=== PATIENT | female | born 1980 | race African-American/Black ===

== ENCOUNTER 2016-06-26 12:17 | Inpatient (IN) | payer MEDICAID ==
[~2016-06-26] VITALS: Ht 160 cm; Wt 78.0 kg
[~2016-06-26 12:17] MED LIST: PRENCAP6 PO
--- NOTE | 2016-06-28 09:03 | HHI.HP ---
HPI Chief Complaint repeat cd Date Seen: Jun 28, 2016 Travel History International Travel<30 Days: No Contact w/Intl Traveler<30Days: No Known Affected Area: No History of Present Illness HPI 35 yo with iup at 40 w 5d here for repeat cd. She desired tolac but cervix unfavorable, has elected for repeat cd. + FM, irreg ctx. neg lof or vb. Para: 1 : 3 Miscarriage: 1 History Past Medical History Medical History: Denies Significant Hx Obstetric History Obstetric History h/o gcm, AMA, ASCUS neg hrhpv Past Surgical History Narrative Surgical CD x 1 for cpd Family History Family History: Negative Social History Alcohol Use: No Tobacco Use: No Substance Abuse: No Allergies-Medications (Allergen,Severity, Reaction): Coded Allergies: No Known Allergies (Unverified , 06/22/16) Home Meds Reported Medications Mv & Min W/Fe Fumarat ( 1) Cap1 Cap PO DAILY 01/28/16 Discontinued Scripts Cephalexin (Keflex)500 Mg [id number] Mg PO Q6 #28 CAP Prov:Haresh Samuel MD 01/28/16 Review of Systems General / Constitutional: No: Fever, Weight Gain, Chills, Other Eyes: No: Diploplia, Blurred Vision, Visual changes, Pain, Photophobia HENT: No: Headaches, Vertigo, Lightheadedness Cardiovascular: No: Irregular Rhythm, Chest Pain or Discomfort, Palpitations, Tachycardia, Syncope, Varicosities, Edema, Cyanosis Respiratory: No: Cough, Short of Breath, Other Gastrointestinal: Other (hemorrhoids), No: Nausea, Vomiting, Diarrhea Genitourinary: No: Decreased Urinary Output, Oliguria Musculoskeletal: No: Limited ROM, Weakness, Cramping, Edema, Pain Skin: No Rash, No Itching, No Dryness, No Lumps, No Change in Pigmentation, No Change in Nails, No Alopecia, No Lesions Neurologic: No: Weakness, Dizziness, Syncope, Focal Abnormalities, Coordination Problem, Headache, Slurred Speech, Seizures Psychiatric: No: Depression, Suicidal Ideations, Homicidal Ideation Endocrine: No: Heat Intolerance, Cold Intolerance, Polydipsia, Polyuria, Other Physical Exam Narrative GENERAL: Well-nourished, well-developed patient. SKIN: Warm and dry. HEAD: Normocephalic and atraumatic. EYES: No scleral icterus. No injection or drainage. ENT: No nasal drainage noted. Mucous membranes pink. Airway patent. NECK: Supple, trachea midline. No JVD. CARDIOVASCULAR: Regular rate and rhythm without murmurs, gallops, or rubs. RESPIRATORY: Breath sounds equal bilaterally. No accessory muscle use. ABDOMEN/GI: Abdomen soft, non-tender, bowel sounds present, no rebound, no guarding Fundal Height: [-] GENITOURINARY: External Genitalia: intact and normal in appearance Presentation: ceph Membranes: [intact Uterine Contractions: irreg FHT's: Category:I EXTREMITIES: No cyanosis or edema. BACK: Nontender without obvious deformity. No CVA tenderness. NEUROLOGICAL: Awake and alert. Motor and sensory grossly within normal limits. Five out of 5 muscle strength in all muscle groups. Normal speech. Data Data Vital Signs Reviewed: Yes Orders Admit To Inpatient (06/28/16 ) Vital Signs (Adult) .ON ADMISSION (06/28/16 08:53) Activity Oob Ad Kaitlyn (06/28/16 08:53) ^ Heart (06/28/16 08:53) Urinary Catheter Management CANDELARIA.Q8H (06/28/16 08:53) ^ Preps (06/28/16 08:53) Scd / Josue / Foot Pump CANDELARIA.QSHIFT (06/28/16 08:53) ^ Ultrasound For Locatio (06/28/16 08:53) Diet Npo (06/28/16 Breakfast) Type And Screen (06/28/16 08:53) Complete Blood Count With Diff (06/28/16 08:53) Urinalysis - C+S If Indicated (06/28/16 08:53) Specimen To Be Collected PRN (06/28/16 08:53) Assessment/Plan Problem List: (1) History of delivery (2) 40 weeks gestation of (3) AMA (advanced maternal age) multigravida 35+ Assessment and Plan 35 yo with iup at 40w5d by first trimester u/s. here for repeat cd 1) RCD- not favorable pelvis and poor marino score. 2) AMA- neg cfdna adn msafp 3) h/o gdm, normal 1 hr 4) ascus pap with neg hpv Crockett,Joann MD Jun 28, 2016 09:03 Joann Crockett MD Jun 28, 2016 09:03
[2016-06-28 09:04] LABS: AUTOMATED NEUTROPHIL # 7.1 TH/MM3 (1.8-7.7); BASOPHIL % 0.5 % (0.0-2.0); EOSINOPHIL # 0.1 TH/MM3 (0-0.4); EOSINOPHIL % 0.8 % (0.0-4.0); HEMATOCRIT 39.5 % (35.0-46.0); HEMO FLAGS DIFF FINAL; LYMPHOCYTE # 1.2 TH/MM3 (1.0-4.8); MEAN CELL VOLUME 94.2 FL (80.0-100.0); MEAN CORPUSCULAR HEMOGLOBIN 31.8 PG (27.0-34.0); MEAN CORPUSCULAR HGB CONC 33.7 % (32.0-36.0); MONO % 9.9 % (0.0-8.0); NEUT % 75.8 % (16.0-70.0); PLATELET COUNT 210 TH/MM3 (150-450); RED BLOOD COUNT 4.19 MIL/MM3 (4.00-5.30); RED CELL DISTRIBUTION WIDTH 14.3 % (11.6-17.2); WHITE BLOOD COUNT 9.4 TH/MM3 (4.0-11.0)
[2016-06-28 09:05] LABS: BACTERIA, URINE OCC /hpf; BLOOD, URINE NEG (NEG); COMMENT (UR) CULT NOT INDICATED; CULTURE IF INDICATED CULT NOT INDICATED; GLUCOSE,URINE NEG (NEG); KETONE, URINE NEG (NEG); MUCUS URINE FEW /lpf (OCC); NITRITE,URINE NEG (NEG); PH, URINE 6.5 (5.0-8.5); SQUAMOUS EPITHELIAL CELL URINE 3 /hpf (0-5); URINE COLOR YELLOW (YELLW/STRAW)
[2016-06-28] MEDS ORDERED: OXYTOCIN 10 UNIT/ML AMP ONE (09:39)
[2016-06-28] MEDS ORDERED: ceFAZolin INJ 1,000 MG VIAL ONE (09:39)
[2016-06-28] MEDS ORDERED: ceFAZolin 2 GM PREMIX 50 ML IV SCH (10:00)
[2016-06-28] MEDS ORDERED: CITRIC ACID-SODIUM CITRATE LIQ 30 ML UDC PO SCH (10:00)
[2016-06-28] MEDS ORDERED: LACTATED RINGER'S 1000 ML IV ONE (10:00)
[2016-06-28] MEDS: LACTATED RINGER'S 1000 ML IV SCH (10:00)
[2016-06-28 10:50] VITALS: BP 123/62; PULSE 68; RESP 16; TEMP 97.7; O2SAT 98
[2016-06-28] MEDS ORDERED: MORPHINE SULFATE PF 5 MG/10 ML VIAL ONE (10:50)
--- NOTE | 2016-06-28 10:52 | PD.OB.DELI ---
Procedure Note Section Procedure Pre Op Diagnosis: (1) 40 weeks gestation of (2) AMA (advanced maternal age) multigravida 35+ (3) History of delivery Post Op Diagnosis: (1) 40 weeks gestation of (2) AMA (advanced maternal age) multigravida 35+ (3) History of delivery Performed by Joann Crockett Procedure: Repeat Low Transverse Sec Indication for delivery: Desired elective repeat Informed consent obtained: For anesthesia, For procedure Confirmed correct: Patient, Procedure, Site, Time-out taken Anesthesia: Spinal Medication prior to procedure: As documented in eMAR Monitoring during procedure: Blood pressure monitoring, Pulse oximetry Urinary catheter: Inserted using sterile technique, To dependent drainage, ml urine output (50) Sterile preparation: With 2% chlorexidine (Hibiclens) Position: Supine with wedge to right side, Supine with safety belt applied Operative Features Skin Incision: Pfannenstiel Uterine Incision: Low transverse w/knife / blunt ext Membranes Ruptured: Artificially, Appearance of fluid (cl) Presentation: Occiput posterior Delivery of : Uneventful Infant: Male One Minute : 8 Five Minute : 8 Weight: pending Status of : Viable, Cord blood Placenta delivered: Intact Medications: Antibiotics, Oxytocin Estimated blood loss: 500ml Procedure tolerated: Well Maternal Condition: Stable Baby Complications: Hypoxia (on cpap, taken to nicu for low O2 sats) Condition: Fair Procedure in detail see dictation Joann Crockett MD Jun 28, 2016 10:52
--- NOTE | 2016-06-28 10:53 | HHI.DCPOC ---
Discharge Care Plan Diagnosis: (1) History of delivery Your Health Problems Are: Incisions/drains delivery Report Symptoms to Your Doctor -Temperate above 100.5 degrees -Redness, of incision or excessive or foul smelling drainage -Unusual pain or calf pain -Increased vaginal bleeding -Painful or difficulty urinating -Feelings of extreme sadness or anxiety after 2 weeks Goals to Promote Your Health * To prevent worsening of your condition and complications * To maintain your health at the optimal level Directions to Meet Your Goals Take your medications as prescribed Follow your dietary instruction Follow activity as directed Ensure plenty of rest for recovery Drink fluids for hydration Keep your appointments as scheduled Take your immunizations and boosters as scheduled If your symptoms worsen call your PCP, if no PCP go to Urgent Care Center or Emergency Room Smoking is Dangerous to Your Health. Avoid second hand smoke Call the 24-hour crisis hotline for domestic abuse at Joann Crockett MD Jun 28, 2016 10:52
[2016-06-28] MEDS ORDERED: ONDANSETRON HCL 4 MG/2 ML VIAL IV PUSH PRN (11:00)
[2016-06-28] MEDS ORDERED: oxyCODONE/ACETAMINOPHEN 5 MG/325 MG TAB PO PRN (11:00)
[2016-06-28] MEDS ORDERED: SODIUM CHLORIDE 0.9% FLUSH 5 ML FLUSH IV PRN (11:00)
[2016-06-28] MEDS ORDERED: OXYTOCIN 30 UNITS-500ML PREMIX 500 ML IV ONE (11:00)
[2016-06-28] MEDS ORDERED: ACETAMINOPHEN 1000 MG/100 ML VIAL IV ONE ×2 (11:00→11:15)
[2016-06-28] MEDS ORDERED: SIMETHICONE 80 MG CHEWABLE TAB PO PRN (11:00)
[2016-06-28 11:05] VITALS: BP 130/73; PULSE 63; RESP 16; O2SAT 96
[2016-06-28] MEDS ORDERED: METOCLOPRAMIDE HCL 10 MG/2 ML VIAL IV ONE (11:12)
[2016-06-28] MEDS ORDERED: LACTATED RINGER'S 1000 ML INJ 1,000 ML IV ONE (11:13)
[2016-06-28] MEDS ORDERED: OXYTOCIN 30 UNITS-500ML PREMIX 500 ML ONE (11:15)
--- NOTE | 2016-06-28 11:19 | MP ---
cc: JOANN CROCKETT MD DATE OF SURGERY 06/28/2016 PREOPERATIVE DIAGNOSES 1. Intrauterine at 40 weeks and 5 days. 2. History of delivery. 3. Advanced maternal age. POSTOPERATIVE DIAGNOSES 1. Intrauterine at 40 weeks and 5 days. 2. History of delivery. 3. Advanced maternal age. INDICATIONS The patient is a 35-year-old G3, P 1-0-1-1 with an intrauterine at 40 weeks and 5 days. She has a history of a prior for cephalopelvic disproportion and she had initially desired a trial of labor but given that she had a poor Webber score and she was over 40 weeks, she elected to have a repeat delivery. The risks, benefits and alternatives were discussed. Consent signed on chart. All questions answered. SURGEON Joann Crockett MD PROCEDURE PERFORMED Repeat low transverse delivery. ESTIMATED BLOOD LOSS 500 mL. IV FLUIDS 2 liters. URINE OUTPUT 15 mL. ANESTHESIA Spinal. COMPLICATIONS None. COUNTS Sponge, lap, needle and instrument correct x 3. INTRAOPERATIVE FINDINGS Viable male infant, Apgars of 8 and 8. Weight pending. Baby taken to NICU for desaturation, placed on C-PAP. Clear amniotic fluid. Maternal Anatomy: Approximately 4-cm fibroid anterior fundal portion of the uterus. Normal tubes and ovaries. Minimal scarring of the subcutaneous tissue and fascia. Minimal filmy adhesions from the bladder to the lower uterine segment. PROCEDURE IN DETAIL After reviewing informed consent, the patient was taken to the operating room where spinal anesthesia was administered without complication. A Sy was placed under sterile conditions. The abdomen was prepped and draped in normal sterile fashion. Antibiotics were given prior to incision. Anesthesia was confirmed to be adequate. A Pfannenstiel skin incision was made at the previous incision site with the scalpel, carried down to underlying fascia with the Bovie. The fascia was incised in the midline. This incision was extended bilaterally with Sexton scissors. The superior aspect of the fascial incision was grasped with Damian clamps, elevated and the rectus muscles dissected off bluntly. The same was repeated inferiorly. The rectus muscles were in the midline bluntly. The peritoneum was entered bluntly. This incision was extended bluntly. The bladder blade was inserted. Very minimal filmy adhesions of the bladder to the lower uterine segment were noted. These were taken down with Metzenbaum scissors. A bladder flap was created with Metzenbaum scissors. The bladder blade was replaced. A low transverse uterine incision was made with the scalpel and dissection was extended bluntly. The amnion was ruptured and noted to be clear. The head was flexed. OP presentation was noted and fundal pressure was applied and delivery of the head followed by the thorax and the rest of the body readily followed. The baby was bulb suctioned. The cord was doubly clamped and cut. The baby was handed off to the waiting pediatricians. IV infusion of Pitocin was started immediately after delivery of the . The placenta was delivered with gentle traction and uterine massage. The uterus was then exteriorized, cleared of all clots and debris with a moistened laparotomy sponge. The uterus was repaired in two layers with #1 chromic, first with a running locked stitch, followed by an imbricating layer. The posterior cul-de-sac was irrigated. The uterus was replaced. Good hemostasis was noted. The anterior cul-de-sac was irrigated. The peritoneum was closed in running fashion with 2-0 chromic. The fascia was closed with #1 Vicryl in a running fashion. The subcutaneous tissue was irrigated and hemostasis was obtained with the Bovie. The skin was closed with 3-0 Monocryl in a subcuticular fashion. Steri-Strips were applied and sterile dressing. The patient tolerated the procedure well. Joann Crockett MD PE/ZENIA /10:48 AM /11:05 AM GWYN
[2016-06-28 11:20] VITALS: BP 119/69; PULSE 61; RESP 17; O2SAT 96
[2016-06-28] MEDS ORDERED: EPIDURAL-DIPHENHYDRAMINE HCL 50 MG CAP PO PRN (12:30)
[2016-06-28] MEDS ORDERED: EPIDURAL-DO NOT ADMINISTER ANTICOAGULANTS XX PRN (12:30)
[2016-06-28] MEDS ORDERED: EPIDURAL-NALOXONE HCL 0.4 MG/ML AMP IV PRN (12:30)
[2016-06-28] MEDS ORDERED: EPIDURAL-DIPHENHYDRAMINE HCL 50 MG/ML VIAL IV PUSH PRN (12:30)
[2016-06-28] MEDS ORDERED: EPIDURAL-NO SYSTEMIC NARCOTICS XX PRN (12:30)
[2016-06-28 13:03] VITALS: BP 105/73; PULSE 67; RESP 20; TEMP 97.5
[2016-06-28] MEDS ORDERED: LACTATED RINGER'S 1000 ML INJ 1,000 ML IV SCH (15:47)
[2016-06-28 17:22] VITALS: BP 112/77; PULSE 83; RESP 16; TEMP 99
[2016-06-28] MEDS: IBUPROFEN 600 MG TAB PO PRN (18:34)
[2016-06-28] MEDS: oxyCODONE/ACETAMINOPHEN 5 MG/325 MG TAB PO PRN (18:35)
[2016-06-28 19:15] VITALS: BP 114/80; PULSE 78; RESP 14; TEMP 98.9
[2016-06-28] MEDS ORDERED: ACETAMINOPHEN 1000 MG/100 ML VIAL IV SCH (20:00)
[2016-06-28] MEDS ORDERED: SODIUM CHLORIDE 0.9% FLUSH 5 ML FLUSH IV SCH (21:00)
[2016-06-28] MEDS ORDERED: OXYTOCIN 30 UNITS-500ML PREMIX 500 ML IV PRN (21:00)
[2016-06-29] MEDS: oxyCODONE/ACETAMINOPHEN 5 MG/325 MG TAB PO PRN ×3 (00:01→18:58)
[2016-06-29] MEDS: IBUPROFEN 600 MG TAB PO PRN ×4 (00:01→18:58)
[2016-06-29 07:18] LABS: AUTOMATED NEUTROPHIL # 7.6 TH/MM3 (1.8-7.7); BASOPHIL % 0.3 % (0.0-2.0); EOSINOPHIL # 0.1 TH/MM3 (0-0.4); EOSINOPHIL % 0.8 % (0.0-4.0); HEMO FLAGS DIFF FINAL; LYMPH % 10.6 % (9.0-44.0); MEAN CELL VOLUME 93.2 FL (80.0-100.0); MEAN CORPUSCULAR HEMOGLOBIN 31.3 PG (27.0-34.0); MEAN CORPUSCULAR HGB CONC 33.6 % (32.0-36.0); MONO % 8.9 % (0.0-8.0); NEUT % 79.4 % (16.0-70.0); PLATELET COUNT 174 TH/MM3 (150-450); RED BLOOD COUNT 3.75 MIL/MM3 (4.00-5.30); RED CELL DISTRIBUTION WIDTH 14.2 % (11.6-17.2); WHITE BLOOD COUNT 9.5 TH/MM3 (4.0-11.0)
[2016-06-29 08:00] VITALS: BP 100/68; PULSE 79; RESP 17; TEMP 97.9
--- NOTE | 2016-06-29 08:20 | HHI.OB ---
Subjective Post Operative Day: 1 Remarks s/p repeat CD Objective Vitals/I&O Vital Signs Date Time Temp Pulse Resp B/P Pulse Ox O2 Delivery O2 Flow Rate FiO2 06/28/16 19:15 98.9 78 14 114/80 06/28/16 17:22 99.0 83 16 112/77 06/28/16 13:03 97.5 67 20 105/73 06/28/16 11:20 61 17 119/69 96 06/28/16 11:05 63 16 130/73 96 06/28/16 10:50 68 123/62 06/28/16 10:50 97.7 16 98 Result Diagram: 06/29/16 0650 Objective Remarks GENERAL: Well-nourished, well-developed patient. CARDIOVASCULAR: Regular rate and rhythm without murmurs, gallops, or rubs. RESPIRATORY: Breath sounds equal bilaterally. No accessory muscle use. ABDOMEN/GI: Abdomen soft, non-tender, bowel sounds present. Incision: Clean, dry and intact. steri-strips in place Fundus: Firm, non-tender at umbilicus. GENITOURINARY: Light to moderate bleeding. EXTREMITIES: No cyanosis or edema, non-tender, without signs of DVT. Medications and IVs Current Medications Medications (Trade) Dose Ordered Sig/Suman Route Start Time Stop Time Status Last Admin Lactated Ringer's 1,000 ml @ 150 mls/hr Q6H40M IV 06/28/16 10:00 (Lr 1000 ml Inj) 1,000 ml @ 100 mls/hr Q10H IV 06/28/16 15:47 06/29/16 11:46 (NS Flush) 2 ml BID IV 06/28/16 21:00 (NS Flush) 2 ml UNSCH PRN IV 06/28/16 11:00 (Mylicon Chew) 80 mg QID PRN PO 06/28/16 11:00 (Motrin) 600 mg Q6H PRN PO 06/28/16 11:00 06/29/16 06:11 (Percocet 5-325 Mg) 1 tab Q4H PRN PO 06/28/16 11:00 06/29/16 06:11 (Percocet 5-325 Mg) 2 tab Q4H PRN PO 06/28/16 11:00 (Kandis-Colace) 2 tab Q12H PRN PO 06/28/16 11:00 (M-M-R Ii Inj) 0.5 ml ONCE ONCE SQ 06/29/16 16:00 06/29/16 16:01 (Boostrix Inj) 0.5 ml ONCE ONCE IM 06/29/16 16:00 06/29/16 16:01 (Zofran Inj) 4 mg Q6H PRN IV PUSH 06/28/16 11:00 Miscellaneous Information NO SYSTEMIC NARCOTICS TO BE GIVEN FO... UNSCH PRN XX 06/28/16 12:30 06/29/16 12:29 (Narcan Inj) 0.4 mg UNSCH PRN IV 06/28/16 12:30 06/29/16 12:29 (Benadryl Inj) 25 mg Q6H PRN IV PUSH 06/28/16 12:30 06/29/16 12:29 (Benadryl) 50 mg Q6H PRN PO 06/28/16 12:30 06/29/16 12:29 Miscellaneous Information ALL NURSING DEPARTMENTS UNSCH PRN XX 06/28/16 12:30 06/29/16 12:29 Assessment/Plan Problem List: (1) History of delivery (2) 40 weeks gestation of (3) AMA (advanced maternal age) multigravida 35+ Assessment and Plan 35 yo s/p repeat CD at 40w5d routine supportive care, support infant in NICU for problems maintaining O2 sats; parents paid for circ; if nursery status will plan circ prior to d/c Discharge Planning routine Nayely Le MD Jun 29, 2016 08:20
[2016-06-29 12:00] VITALS: BP 120/66; PULSE 89; RESP 18; TEMP 97.7
[2016-06-29] MEDS: DOCUSATE SODIUM 50 MG/SENNA 8.6 MG TAB PO PRN (12:42)
[2016-06-29] MEDS ORDERED: DIPHTH/TETANUS/ACEL PERTUSSIS (BOOSTER) 0.5 ML VIAL/PFS IM ONE (16:00)
[2016-06-29] MEDS ORDERED: MEASLES, MUMPS, RUBELLA VACCINE 0.5 ML VIAL SQ ONE (16:00)
[2016-06-29] MEDS: LACTATED RINGER'S 1000 ML IV SCH (19:20)
[2016-06-30] MEDS: LACTATED RINGER'S 1000 ML IV SCH (02:00)
[2016-06-30] MEDS: oxyCODONE/ACETAMINOPHEN 5 MG/325 MG TAB PO PRN ×4 (02:41→19:57)
[2016-06-30] MEDS: IBUPROFEN 600 MG TAB PO PRN ×4 (02:41→19:57)
[2016-06-30] MEDS: DOCUSATE SODIUM 50 MG/SENNA 8.6 MG TAB PO PRN (02:42)
[2016-06-30 07:00] VITALS: BP 128/84; PULSE 73; RESP 16; TEMP 98.2
[2016-06-30] MEDS ORDERED: OXYC1TAB63 PO (10:17)
[2016-06-30] MEDS ORDERED: IBUP-232 PO (10:17)
--- NOTE | 2016-06-30 10:17 | HHI.OB ---
Subjective Post Operative Day: 2 Remarks s/p repeat CD Objective Vitals/I&O Vital Signs Date Time Temp Pulse Resp B/P Pulse Ox O2 Delivery O2 Flow Rate FiO2 06/30/16 07:00 98.2 73 16 128/84 06/29/16 12:00 89 120/66 06/29/16 12:00 97.7 18 Result Diagram: 06/29/16 0650 Objective Remarks GENERAL: Well-nourished, well-developed patient. CARDIOVASCULAR: Regular rate and rhythm without murmurs, gallops, or rubs. RESPIRATORY: Breath sounds equal bilaterally. No accessory muscle use. ABDOMEN/GI: Abdomen soft, non-tender, bowel sounds present. Incision: Clean, dry and intact. steri-strips in place Fundus: Firm, non-tender at umbilicus. GENITOURINARY: Light to moderate bleeding. EXTREMITIES: No cyanosis or edema, non-tender, without signs of DVT. Medications and IVs Current Medications Medications (Trade) Dose Ordered Sig/Suman Route Start Time Stop Time Status Last Admin (Lr 1000 ml Inj) 1,000 ml @ 150 mls/hr Q6H40M IV 06/28/16 10:00 (NS Flush) 2 ml BID IV 06/28/16 21:00 (NS Flush) 2 ml UNSCH PRN IV 06/28/16 11:00 (Mylicon Chew) 80 mg QID PRN PO 06/28/16 11:00 06/29/16 16:11 (Motrin) 600 mg Q6H PRN PO 06/28/16 11:00 06/30/16 08:00 (Percocet 5-325 Mg) 1 tab Q4H PRN PO 06/28/16 11:00 06/30/16 08:00 (Percocet 5-325 Mg) 2 tab Q4H PRN PO 06/28/16 11:00 06/29/16 12:43 (Kandis-Colace) 2 tab Q12H PRN PO 06/28/16 11:00 06/30/16 02:42 (Zofran Inj) 4 mg Q6H PRN IV PUSH 06/28/16 11:00 Assessment/Plan Problem List: (1) History of delivery (2) 40 weeks gestation of (3) AMA (advanced maternal age) multigravida 35+ Assessment and Plan 35 yo s/p repeat CD at 40w5d routine supportive care, support in NICU for problems maintaining O2 sats; parents paid for circ; if infant becomes nursery status will plan circ prior to d/c tomorrow Discharge Planning routine Nayely Le MD Jun 30, 2016 10:17
[2016-06-30] MEDS ORDERED: SENN1TAB PO (10:18)
[2016-06-30] MEDS ORDERED: PRAMOXINE 1% RECTAL FOAM 15 GM CAN RECTAL PRN (11:00)
[2016-07-01] MEDS: oxyCODONE/ACETAMINOPHEN 5 MG/325 MG TAB PO PRN ×2 (01:54→09:34)
[2016-07-01] MEDS: IBUPROFEN 600 MG TAB PO PRN ×2 (01:54→09:35)
--- NOTE | 2016-07-01 08:31 | HHI.OB ---
Subjective Post Operative Day: 3 Remarks doing well Objective Result Diagram: 06/29/16 0650 Objective Remarks GENERAL: Well-nourished, well-developed patient. CARDIOVASCULAR: Regular rate and rhythm without murmurs, gallops, or rubs. RESPIRATORY: Breath sounds equal bilaterally. No accessory muscle use. ABDOMEN/GI: Abdomen soft, non-tender, bowel sounds present. Incision: Clean, dry and intact. steri-strips in place Fundus: Firm, non-tender at umbilicus. GENITOURINARY: Light to moderate bleeding. EXTREMITIES: No cyanosis or edema, non-tender, without signs of DVT. Medications and IVs Current Medications Medications (Trade) Dose Ordered Sig/Suman Route Start Time Stop Time Status Last Admin (Lr 1000 ml Inj) 1,000 ml @ 150 mls/hr Q6H40M IV 06/28/16 10:00 (NS Flush) 2 ml BID IV 06/28/16 21:00 (NS Flush) 2 ml UNSCH PRN IV 06/28/16 11:00 (Mylicon Chew) 80 mg QID PRN PO 06/28/16 11:00 06/29/16 16:11 (Motrin) 600 mg Q6H PRN PO 06/28/16 11:00 07/01/16 01:54 (Percocet 5-325 Mg) 1 tab Q4H PRN PO 06/28/16 11:00 07/01/16 01:54 (Percocet 5-325 Mg) 2 tab Q4H PRN PO 06/28/16 11:00 06/29/16 12:43 (Kandis-Colace) 2 tab Q12H PRN PO 06/28/16 11:00 06/30/16 02:42 (Zofran Inj) 4 mg Q6H PRN IV PUSH 06/28/16 11:00 (Proctofoam) 1 applic Q6H PRN RECTAL 06/30/16 11:00 Assessment/Plan Problem List: (1) History of delivery (2) 40 weeks gestation of (3) AMA (advanced maternal age) multigravida 35+ Assessment and Plan 35 yo s/p repeat CD at 40w5d POD 3 routine supportive care, support in NICU for problems maintaining O2 sats; parents paid for circ;baby to be d/c from nicu today, will likely circ today Discharge Planning routine Joann Crockett MD Jul 01, 2016 08:31
[2016-07-01] MEDS: DOCUSATE SODIUM 50 MG/SENNA 8.6 MG TAB PO PRN (09:35)
== END 2016-07-01 13:32 | disposition home or self-care (01) | DRG 766 ==
LOC: H2EB 06-28 08:20 → H1EA 06-28 12:41
PROVIDERS: ADMIT Obstetrics & Gynecology; ATTEND Obstetrics & Gynecology
PROC: 10D00Z1 Extraction of Products of Conception, Low, Open Approach (ICD-10-PCS; principal; 2016-06-28)
DX: O34.211 Maternal care for low transverse scar from previous cesarean delivery (principal); O09.523 Supervision of elderly multigravida, third trimester; Z37.0 Single live birth; Z3A.40 40 weeks gestation of pregnancy; Z86.32 Personal history of gestational diabetes
CPT/HCPCS: 59025; 81001; 85025; 86850; 86900; 86901; 90715; J0131; J0690; J2274; J2590; J2765; J7120